=== PATIENT | male | born 1995 | race Caucasian/White ===

== ENCOUNTER 2017-06-21 16:28 | Emergency (ER) | payer OTHER ==
--- NOTE | 2017-06-21 19:36 | RAD ---
INDICATION: Right hand injury. TECHNIQUE: 4 views of the right hand were obtained. FINDINGS: There is medial soft tissue swelling. There is a transverse slightly impacted fracture of the distal metaphysis of the fifth metacarpal. The distal fragment demonstrates mild anterior angulation relative to the proximal fragment. IMPRESSION: SLIGHTLY ANGULATED FRACTURE OF THE DISTAL FIFTH METACARPAL.
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
[2017-06-21 19:43] VITALS: BP 148/88
== END 2017-06-21 19:42 | disposition home or self-care (01) ==
LOC: ED 16:28
DX: S62.396A Other fracture of fifth metacarpal bone, right hand, initial encounter for closed fracture (principal); W22.8XXA Striking against or struck by other objects, initial encounter; Y92.9 Unspecified place or not applicable
CPT/HCPCS: 99282